=== PATIENT | male | born 1985 | race Native Hawaiian/Other Pacific Islander ===

== ENCOUNTER 2022-08-13 15:36 | Outpatient (CLI) | payer OTHER | END 2022-08-13 19:42 | disposition home or self-care (01) | LOC: RAD 15:36 | PROVIDERS: ATTEND Physician Assistant | DX: M54.2 Cervicalgia (principal) ==

== ENCOUNTER 2023-04-01 16:13 | Outpatient (CLI) | payer OTHER | END 2023-04-01 19:45 | disposition home or self-care (01) | LOC: RAD 16:13 | PROVIDERS: ATTEND Orthopaedic Surgery | DX: M25.531 Pain in right wrist (principal) ==